=== PATIENT | male | born 1940 | race Native Hawaiian/Other Pacific Islander ===

== ENCOUNTER 2022-11-28 08:56 | Outpatient (CLI) | payer OTHER ==
[2022-11-28 09:16] LABS: PLATELET COUNT 182 K/uL (142-355)
[2022-11-28 09:38] LABS: POTASSIUM 4.6 mmol/L (3.6-5.2)
== END 2022-11-28 18:57 | disposition home or self-care (01) ==
LOC: LABW 08:56
PROVIDERS: ATTEND Internal Medicine
DX: I25.10 Atherosclerotic heart disease of native coronary artery without angina pectoris (principal); E55.9 Vitamin D deficiency, unspecified; Z79.899 Other long term (current) drug therapy
CPT/HCPCS: 36415; 80053; 80061; 81002; 82306; 84439; 84443; 85027

== ENCOUNTER 2023-01-10 11:30 | Outpatient (CLI) | payer OTHER | END 2023-01-10 18:57 | disposition home or self-care (01) | LOC: RAD 11:30 | PROVIDERS: ATTEND Internal Medicine | DX: J40 Bronchitis, not specified as acute or chronic (principal) ==

== ENCOUNTER 2023-04-25 09:42 | Outpatient (CLI) | payer OTHER | END 2023-04-25 20:45 | disposition home or self-care (01) | LOC: RAD 09:42 | PROVIDERS: ATTEND Internal Medicine | DX: S39.012A Strain of muscle, fascia and tendon of lower back, initial encounter (principal); Y92.89 Other specified places as the place of occurrence of the external cause ==